=== PATIENT | male | born 1985 | race Two or more races ===

== ENCOUNTER 2017-12-16 19:15 | Emergency (ER) | payer OTHER ==
[~2017-12-16] VITALS: Ht 167.6 cm; Wt 68.0 kg
== END 2017-12-16 20:35 | disposition home or self-care (01) ==
LOC: ER 19:15
DX: S00.81XA Abrasion of other part of head, initial encounter (principal); S80.212A Abrasion, left knee, initial encounter; V43.62XA Car passenger injured in collision with other type car in traffic accident, initial encounter
CPT/HCPCS: 70450; 71045; 72125; 73564; 90471; 90714; 99284; J2405; J3010